=== PATIENT | female | born 1945 | race Caucasian/White ===

== ENCOUNTER 2019-03-18 13:42 | Inpatient (IN) | payer MEDICARE ==
[~2019-03-18] VITALS: Ht 165.1 cm; Wt 58.5 kg
--- NOTE | 2019-03-18 14:44 | NUR ---
ADMISSION NOTE: PATIENT IS A 73 YEAR OLD, FEMALE, BROUGHT IN TO THE HOSPITAL BY AMBULANCE, ADMITTED ON A 5150 HOLD FOR DTO AND GD. PATIENT DIRECT ADMIT FROM [facility] FROM [facility]. PATIENT ADMITTED ON 5150 FOR DTS AND GD DUE TO INCREASING AGGRESSIVE BEHAVIOR TOWARD STAFF AND PEERS. PT HAS DISORGANIZED THOUGHT PROCESSES AND LIMITED INSIGHT INTO HER CONDITION. UPON FACE TO FACE ASSESSMENT PATIENT IS AOX1. SHE IS SLEEPING BUT EASILY AROUSABLE. PATIENT UNABLE TO VERBALIZE WETHER SHE HAS SI OR HI DUE TO MENTAL STATUS. FALL RISK PRECAUTIONS IN PLACE ALONG WITH Q15 CHECKS. PATIENTS RIGHTS HANDBOOK AND GUIDE TO PRESCRIPTIONS PROVIDED. SON NOTIFIED OF ADMISSION. SKIN IS INTACT. DR. KLEIN AND DR. RAMIREZ MADE AWARE OF ADMISSION. WILL CONTINUE TO MONITOR Q15 FOR SAFETY AND BEHAVIOR.
[2019-03-18] MEDS ORDERED: MAG HYDROX/AL HYDROX/SIMETH 30 ML UDC PO PRN (15:00)
[2019-03-18] MEDS ORDERED: ACETAMINOPHEN 325 MG TABLET PO PRN (15:00)
[2019-03-18] MEDS ORDERED: MAGNESIUM HYDROXIDE 30 ML UDC PO PRN (15:00)
[2019-03-18] MEDS ORDERED: BLOOD SUGAR DIAGNOSTIC 1 EACH STRIP IN ONE (15:00)
[2019-03-18] MEDS ORDERED: ESCI10TA PO (15:13)
[2019-03-18] MEDS ORDERED: QUET50TA PO (15:13)
[2019-03-18] MEDS ORDERED: LEVO88TA5 PO (15:13)
[2019-03-18] MEDS ORDERED: EZET10TA32 PO (15:13)
[2019-03-18] MEDS ORDERED: ALPR0.255 PO (15:13)
[2019-03-18] MEDS ORDERED: MEMA10TA56 PO (15:13)
[2019-03-18] MEDS: MEMANTINE HCL 5 MG TABLET PO SCH (17:00)
[2019-03-18 20:00] VITALS: BP 123/65
[2019-03-18 22:12] VITALS: BP 123/65
[2019-03-18 22:32] VITALS: BP 123/65
[2019-03-19 07:10] LABS: ALBUMIN 2.9 g/dL (3.4-5.0); BILIRUBIN,TOTAL 0.7 mg/dL (0.2-1.0); CALCIUM, SERUM 8.8 mg/dL (8.5-10.1); CREATININE 0.8 mg/dL (0.6-1.3); POTASSIUM 3.7 mmol/L (3.5-5.1); TOTAL PROTEIN, SERUM 7.2 g/dL (6.4-8.2)
[2019-03-19] MEDS: LEVOTHYROXINE SODIUM 88 MCG TABLET PO SCH (07:31)
[2019-03-19 08:00] VITALS: BP 123/66
[2019-03-19] MEDS: MEMANTINE HCL 5 MG TABLET PO SCH ×2 (08:26→17:05)
[2019-03-19] MEDS: EZETIMIBE 10 MG TABLET PO SCH (08:26)
--- NOTE | 2019-03-19 13:25 | NUR ---
Family Contact: SW called the pts son, Manolo ([phone]), and he stated that the pt has been confused for a long time and stated that he believes that the pt can return to her facility once she is stable. He stated that his made a psychiatrist appointment for the pt on 03/30/19 and the SW stated that the average length of stay is 7-10 days.
--- NOTE | 2019-03-19 13:28 | NUR ---
Facility Contact: MARIA ELENA called [facility] ([phone]) and spoke to Kim who stated that the pt has to be reevaluated before the pt can be readmitted to their facility. MARIA ELENA stated that she will inform them before the pts discharge date so that a nurse can arrive and evaluate.
--- NOTE | 2019-03-19 14:57 | NUR ---
Initial Discharge Plan: Pt currently resides at [facility] located at [address] [place] [address], [place] [address]; ([phone]). Per pt's son, Manolo ([phone]), he would like the pt to return to the facility. SW spoke to the facility and it was stated that the pt would need to be assessed first. SW will work with the pt and the MD regarding appropriate discharge planning. SW will form a safe and proper discharge.
[2019-03-19] MEDS ORDERED: QUETIAPINE FUMARATE 100 MG TABLET PO SCH (15:30)
[2019-03-19 16:00] VITALS: BP 151/75
[2019-03-19] MEDS: ESCITALOPRAM OXALATE (10 MG) 10 MG TABLET PO SCH (16:10)
[2019-03-19] MEDS ORDERED: QUETIAPINE FUMARATE 100 MG TABLET PO ONE (16:30)
[2019-03-19 20:13] VITALS: BP 100/67
[2019-03-19] MEDS: QUETIAPINE FUMARATE 100 MG TABLET PO SCH (21:08)
[2019-03-20 08:00] VITALS: BP 117/62
[2019-03-20] MEDS: ESCITALOPRAM OXALATE (10 MG) 10 MG TABLET PO SCH (11:04)
[2019-03-20] MEDS: EZETIMIBE 10 MG TABLET PO SCH (11:04)
[2019-03-20] MEDS: LEVOTHYROXINE SODIUM 88 MCG TABLET PO SCH (11:05)
[2019-03-20] MEDS: MEMANTINE HCL 5 MG TABLET PO SCH ×2 (11:08→17:47)
[2019-03-20] MEDS: QUETIAPINE FUMARATE 100 MG TABLET PO SCH ×2 (11:09→17:47)
--- NOTE | 2019-03-20 15:13 | NUR ---
Patient is extermely confused and disorganized, she was able to identify her son but then she said he was someone trying to take her money. She kept walking away from him but when redirected to visit with him , she would go to him but then think he is someone else. She wanders about hallway . she is compliant with morning medication regimen but it takes a while for her to take them. she is not oriented to day, time or where she is, no angry or aggressive behavior, will monitor for safety and changes in behavior.
[2019-03-20 16:00] VITALS: BP 115/81
[2019-03-20] MEDS: clonazePAM 0.5 MG TABLET PO PRN (17:47)
--- NOTE | 2019-03-20 17:48 | NUR ---
Patient became agitated, screaming, kicking, hitting, and trying to bite staff for no apparent reason. Patient was extremely delusional thinking staff was trying to kill her, not able to redirect but was able to administer Klonopin 0.5 mg for agitation, will monitor for safety and increased behavioral changes.
--- NOTE | 2019-03-20 20:00 | NUR ---
RN NOTES: RECEIVED PT. AWAKE ALERT IN DAY ROOM SITTING IN GERICHIAR CONFUSED,ANXIOUS PARANOID,DISORGNIZED NOT SATYING IN BED, GETTING OUT OF THE BED , BANGING UPPER LOWER EXTREMITIES WITH SIDE RAILS AND YADI CHAIR , VISUALLY NOTED SELF INFLICTED SKIN DISCILORATIONS SCABS , BUT PT. REFUSING SKIN ASSESSMENT AND PHOTOS,NOT FOLLOWING ANY REDIRECTIONS . NO S/S OF DISTRESS NOTED , WILL CONTINUITY WITH CARE.
[2019-03-20 20:52] VITALS: BP 115/66
[2019-03-20] MEDS: TEMAZEPAM 7.5 MG CAPSULE PO PRN (21:37)
--- NOTE | 2019-03-21 07:12 | NUR ---
GPS RN NOTE: PT NOTED WITH RIGHT LEFT SCABS ON THE ARM REFUSED FULL BODY ASSESSMENT WILL CONTINUE MONITORING.
[2019-03-21 08:00] VITALS: BP 128/71
[2019-03-21] MEDS: ESCITALOPRAM OXALATE (10 MG) 10 MG TABLET PO SCH (08:07)
[2019-03-21] MEDS: LEVOTHYROXINE SODIUM 88 MCG TABLET PO SCH (08:07)
[2019-03-21] MEDS: QUETIAPINE FUMARATE 100 MG TABLET PO SCH ×2 (08:07→16:22)
[2019-03-21] MEDS: EZETIMIBE 10 MG TABLET PO SCH (08:07)
[2019-03-21] MEDS: MEMANTINE HCL 5 MG TABLET PO SCH ×2 (08:07→16:22)
[2019-03-21 16:00] VITALS: BP 159/70
[2019-03-21 20:01] VITALS: BP 117/77
--- NOTE | 2019-03-21 21:00 | NUR ---
RN NOTES : EARLIER DURING MY ROUNDING, RIGHT FOREARM SKIN TEAR NOTED, AND MULTILPE SKIN DISCOLORATIONS NOTED SKIN ASSESSMENT DONE , PICTURES TAKEN PLACED IN THE CHART,WOUND CARE CONSULT ORDERS , BUT PT. BEHAVIOR VERY AGRESSIVE UNCOOPERTIVE , NOT STAYING IN HER ROOM/ BED , NOT FOLLOWING ANY REDIRECTIONS , WILL CONTINUITY WITH CARE.
[2019-03-21] MEDS: clonazePAM 0.5 MG TABLET PO PRN (21:13)
--- NOTE | 2019-03-21 21:14 | NUR ---
RN NOTES PT.NOTED VERY ANXIOUS PACING, NOT SATYING IN ROOM / BED ,NOT FOLLOWING ANY REDIRECTIONS ATIVAN 0.5 MG PO PRN GIVEN , WILL CONTINUE TO MONITOR. Addendum: 03/24/19 at 1941 by ERICKSON FRY RN CORRECTION TO THE ABOVE NOTES- KLONOPIN 0.5 MG PO PRN GIVEN AND NOT ATIVAN 0.5 MG ,
[2019-03-22] MEDS: LEVOTHYROXINE SODIUM 88 MCG TABLET PO SCH (07:25)
[2019-03-22 08:00] VITALS: BP 127/64
[2019-03-22] MEDS: EZETIMIBE 10 MG TABLET PO SCH (09:03)
[2019-03-22] MEDS: MEMANTINE HCL 5 MG TABLET PO SCH ×2 (09:03→17:40)
[2019-03-22] MEDS: QUETIAPINE FUMARATE 100 MG TABLET PO SCH ×2 (09:03→17:40)
[2019-03-22] MEDS: ESCITALOPRAM OXALATE (10 MG) 10 MG TABLET PO SCH (09:03)
--- NOTE | 2019-03-22 11:33 | NUR ---
WOUND CARE CONSULT: PT PRESENTS AMBULATORY AND CONTINENT WITH RT ARM SKIN TEAR, PRESENT ON ADMISSION. RECOMMENDATIONS MADE FOR WOUND CARE. DISCUSSED WITH NURSING STAFF. WILL SEE PRN. CONN IN AGREEMENT WITH PLAN OF CARE. Addendum: 03/22/19 at 1134 by TULIO RODRIGUEZ WNDNU Amended: Links added.
[2019-03-22 16:00] VITALS: BP 135/72
[2019-03-22 20:35] VITALS: BP 91/66
[2019-03-22 22:30] VITALS: BP 115/70
[2019-03-23] MEDS: LEVOTHYROXINE SODIUM 88 MCG TABLET PO SCH (07:30)
[2019-03-23 08:00] VITALS: BP 131/73
[2019-03-23] MEDS: MEMANTINE HCL 5 MG TABLET PO SCH ×2 (08:39→17:54)
[2019-03-23] MEDS: QUETIAPINE FUMARATE 100 MG TABLET PO SCH ×2 (08:39→17:53)
[2019-03-23] MEDS: EZETIMIBE 10 MG TABLET PO SCH (08:39)
[2019-03-23] MEDS: ESCITALOPRAM OXALATE (10 MG) 10 MG TABLET PO SCH (09:07)
[2019-03-23 16:00] VITALS: BP 115/78
[2019-03-23 20:28] VITALS: BP 124/68
[2019-03-23] MEDS: TEMAZEPAM 7.5 MG CAPSULE PO PRN (21:29)
--- NOTE | 2019-03-23 22:03 | NUR ---
GPS RN NOTES: PT UNABLE TO SLEEP. OFFERED RESTORIL 7.5 MG PO ORDERED. PY AGREED. VITALS ARE WNL. PT TOLERATED MEDICATION WELL. CONTINUE TO MONITOR
[2019-03-23 22:18] VITALS: BP 119/60
[2019-03-24 08:00] VITALS: BP 107/63
[2019-03-24] MEDS: ESCITALOPRAM OXALATE (10 MG) 10 MG TABLET PO SCH (08:05)
[2019-03-24] MEDS: QUETIAPINE FUMARATE 100 MG TABLET PO SCH ×2 (08:05→17:15)
[2019-03-24] MEDS: MEMANTINE HCL 5 MG TABLET PO SCH ×2 (08:05→17:15)
[2019-03-24] MEDS: EZETIMIBE 10 MG TABLET PO SCH (08:05)
[2019-03-24] MEDS: LEVOTHYROXINE SODIUM 88 MCG TABLET PO SCH (08:05)
--- NOTE | 2019-03-24 11:23 | NUR ---
Facility Contact: SW called [facility] ([phone]) and spoke Gavana and informed her that the pt is being discharged soon and so she needs to be reevaluated. She stated that she will call the SW back when they have it scheduled.
--- NOTE | 2019-03-24 12:17 | NUR ---
Facility Contact: Bijan Ellison called from [facility] ([phone]) and stated that she will assess the pt at around 10:30AM the following day.
--- NOTE | 2019-03-24 13:48 | NUR ---
Family Contact: MARIA ELENA called the pts son, Manolo ([phone]), and informed him that the pt will be assessed the following day but there is no discharge date as of right now.
--- NOTE | 2019-03-24 15:20 | NUR ---
Group Note: SW encouraged pt to participate in group on 03/24/19 at 2pm discussing discharge planning. Pt appeared to be confused and disoriented and was unable to participate group therapy. Pt stated that she is unsure of where she is and where she will be going. SW stated that she came from an Assisted Living and that they will be coming to reassess her the following day. She stated that she does not understand what is happening with her care. SW explained that she has a place to reside and that people who work there just need to make sure that she is appropriate for their facility. SW stated that her son is aware and that he is involved in her care and that appeared to calm the pt.
[2019-03-24 16:00] VITALS: BP 115/75
[2019-03-24] MEDS: clonazePAM 0.5 MG TABLET PO PRN (19:35)
--- NOTE | 2019-03-24 19:37 | NUR ---
RN NOTES: PT.NOTED VERY ANXIOUS PACING IN HALLWAY,NOT FOLLOWING ANY REDIRECTIONS KLONOPIN 0.5 MG PO PRN GIVEN , WILL CONTINUE TO MONITOR.
[2019-03-24 20:04] VITALS: BP 111/64
[2019-03-25 08:00] VITALS: BP 136/75
[2019-03-25] MEDS: ESCITALOPRAM OXALATE (10 MG) 10 MG TABLET PO SCH (08:17)
[2019-03-25] MEDS: EZETIMIBE 10 MG TABLET PO SCH (08:17)
[2019-03-25] MEDS: LEVOTHYROXINE SODIUM 88 MCG TABLET PO SCH (08:17)
[2019-03-25] MEDS: QUETIAPINE FUMARATE 100 MG TABLET PO SCH ×2 (08:17→16:20)
[2019-03-25] MEDS: MEMANTINE HCL 5 MG TABLET PO SCH ×2 (08:17→16:20)
--- NOTE | 2019-03-25 14:20 | NUR ---
Facility Contact: Pily Ellison from [facility] ([phone]) came to the facility and assessed the pt for readmittance to their facility. She stated that the pt seems to be calmer and that the facility will take her back.
[2019-03-25 16:00] VITALS: BP 100/60
[2019-03-25 20:00] VITALS: BP 104/55
[2019-03-26] MEDS: LEVOTHYROXINE SODIUM 88 MCG TABLET PO SCH (07:21)
[2019-03-26 08:00] VITALS: BP 121/76
[2019-03-26] MEDS: MEMANTINE HCL 5 MG TABLET PO SCH ×2 (08:13→17:31)
[2019-03-26] MEDS: QUETIAPINE FUMARATE 100 MG TABLET PO SCH (08:13)
[2019-03-26] MEDS: ESCITALOPRAM OXALATE (10 MG) 10 MG TABLET PO SCH (08:13)
[2019-03-26] MEDS: EZETIMIBE 10 MG TABLET PO SCH (08:13)
--- NOTE | 2019-03-26 12:49 | NUR ---
Family Contact: SW called the pts son, Manolo ([phone]), and he expressed his discontent with the pts care and his concern that the pt is being held in the hospital longer than necessary. He stated that there is an appointment that the pt has on Friday and so she needs to be discharged by Friday.
--- NOTE | 2019-03-26 13:11 | NUR ---
Family Contact: SW called the pts daughter in law, Alyson ([phone]), and informed her about the SNF recommendation and she stated that she wanted to know about the pts behaviors. SW informed her about the pts progress and the reason for this recommendation and she stated that she will call her and then call the SW back.
--- NOTE | 2019-03-26 13:32 | NUR ---
Family Contact: Pts son, Manolo ([phone]), stated that he spoke to his and stated that they have agreed to the SNF placement. SW stated that she will call them first thing on Friday regarding the pts discharge.
--- NOTE | 2019-03-26 13:33 | NUR ---
SNF Referral: MARIA ELENA faxed a referral to [facility] with attn to Ana to the fax number: [phone].
[2019-03-26 16:00] VITALS: BP 104/73
[2019-03-26] MEDS: QUETIAPINE FUMARATE 25 MG TABLET PO SCH (17:36)
[2019-03-26 20:05] VITALS: BP 110/67
--- NOTE | 2019-03-27 07:30 | NUR ---
INITIAL PT IN BED CALM AND COOPERATIVE MEDICATION COMPLIANT BREAKFAST AT BEDSIDE. SIDE RIALS UP X 2 FOE SAFETY CALL BROWN NEXT TO PT WILL CONTINUE TO MONITOR
[2019-03-27] MEDS: LEVOTHYROXINE SODIUM 88 MCG TABLET PO SCH (07:58)
[2019-03-27 08:00] VITALS: BP 143/85
[2019-03-27] MEDS: EZETIMIBE 10 MG TABLET PO SCH (09:31)
[2019-03-27] MEDS: MEMANTINE HCL 5 MG TABLET PO SCH ×2 (09:31→17:28)
[2019-03-27] MEDS: ESCITALOPRAM OXALATE (10 MG) 10 MG TABLET PO SCH (09:32)
[2019-03-27] MEDS: QUETIAPINE FUMARATE 25 MG TABLET PO SCH ×2 (09:32→17:28)
[2019-03-27 16:00] VITALS: BP 112/62
--- NOTE | 2019-03-27 17:40 | NUR ---
closing pt compliant with all medications easily directable kept safe all shift no issued this shift. will given rn report to pm shift for continuity of care
[2019-03-27 20:46] VITALS: BP 96/58
[2019-03-28 08:00] VITALS: BP 126/76
[2019-03-28] MEDS: MEMANTINE HCL 5 MG TABLET PO SCH ×2 (08:24→16:30)
[2019-03-28] MEDS: QUETIAPINE FUMARATE 25 MG TABLET PO SCH ×2 (08:24→16:30)
[2019-03-28] MEDS: EZETIMIBE 10 MG TABLET PO SCH (08:24)
[2019-03-28] MEDS: LEVOTHYROXINE SODIUM 88 MCG TABLET PO SCH (08:24)
[2019-03-28] MEDS: ESCITALOPRAM OXALATE (10 MG) 10 MG TABLET PO SCH (08:24)
[2019-03-28 16:00] VITALS: BP 109/70
[2019-03-28 20:46] VITALS: BP 115/70
[2019-03-29 08:00] VITALS: BP 115/53
[2019-03-29] MEDS: QUETIAPINE FUMARATE 25 MG TABLET PO SCH ×2 (08:49→17:42)
[2019-03-29] MEDS: MEMANTINE HCL 5 MG TABLET PO SCH ×2 (08:49→17:42)
[2019-03-29] MEDS: ESCITALOPRAM OXALATE (10 MG) 10 MG TABLET PO SCH (08:49)
[2019-03-29] MEDS: LEVOTHYROXINE SODIUM 88 MCG TABLET PO SCH (08:49)
[2019-03-29] MEDS: EZETIMIBE 10 MG TABLET PO SCH (08:49)
--- NOTE | 2019-03-29 09:29 | NUR ---
Family Contact: SW called the pts son, Manolo ([phone]), with the pts nurse Yady present, and informed him that the pt is not being discharged today because she has regressed in the sense that she is not taking her medications and appears to be paranoid. SW stated that she is aware the pt will be missing her psychiatrist appointment that was scheduled for the following day and stated that the SW can attempt to reschedule it. Pts son stated that his has better connections with that office and therefore she will call and reschedule the appointments. Pts son expressed concern that they were going out of town soon and therefore they will not be able to assist with transportation when the pt gets accepted to a facility and the SW stated that she will arrange the pts transportation and then will call them and keep them updated. Pts son and daughter in law stated that they understand the need for the discharge to be postponed.
--- NOTE | 2019-03-29 09:43 | NUR ---
SNF Contact: SW received a voicemail from Ana ([phone]) from [facility] and when the SW called back she was informed that she was not at work yet but the inquiry was not passed on to her Admissions. MARIA ELENA will call back at a later time.
--- NOTE | 2019-03-29 10:45 | NUR ---
SNF Referral: MARIA ELENA faxed a referral to [facility] with attn to Alexandro to the fax number: [phone].
--- NOTE | 2019-03-29 11:38 | NUR ---
SNF Contact: SW called Ana ([phone]) from [facility] and she stated that the pt was accepted to their facility.
--- NOTE | 2019-03-29 15:19 | NUR ---
PATIENT WAS PORTRAYING PARANOID BEHAVIOR THIS MORNING. ALTHOUGH SHE HAS BEEN MED COMPLIANT PER REPORT, SHE WAS VERY SUSPICIOUS OVER THE MEDICATIONS AND DID NOT WANT TO TAKE THEM. ANOTHER NURSE HAD TO ATTEMPT TO ADMINISTER THE MEDICATIONS DUE TO HER BEHAVIOR. CONTACTED DR KLEIN AND INFORMED HIM OF MY BEHAVIORAL FINDINGS. DISCHARGE WAS CANCELLED UNTIL FURTHER NOTICE.
[2019-03-29 16:00] VITALS: BP 119/76
[2019-03-29 20:39] VITALS: BP 121/67
[2019-03-29] MEDS: RIVASTIGMINE TARTRATE 1.5 MG CAPSULE PO SCH (21:38)
[2019-03-29] MEDS: risperiDONE 1 MG TABLET PO SCH (21:38)
[2019-03-30] MEDS: LEVOTHYROXINE SODIUM 88 MCG TABLET PO SCH (07:29)
[2019-03-30 08:00] VITALS: BP 132/83
[2019-03-30] MEDS: risperiDONE 1 MG TABLET PO SCH ×2 (08:49→21:28)
[2019-03-30] MEDS: ESCITALOPRAM OXALATE (10 MG) 10 MG TABLET PO SCH (08:49)
[2019-03-30] MEDS: EZETIMIBE 10 MG TABLET PO SCH (08:49)
[2019-03-30] MEDS: RIVASTIGMINE TARTRATE 1.5 MG CAPSULE PO SCH ×2 (08:50→21:27)
[2019-03-30] MEDS: MEMANTINE HCL 5 MG TABLET PO SCH ×2 (08:50→17:40)
[2019-03-30 16:00] VITALS: BP 124/64
[2019-03-30] MEDS ORDERED: risperiDONE 1 MG TABLET PO SCH (17:00)
[2019-03-30 20:09] VITALS: BP 124/75
[2019-03-30] MEDS: TEMAZEPAM 7.5 MG CAPSULE PO PRN (22:25)
[2019-03-31 08:00] VITALS: BP 138/71
[2019-03-31] MEDS: risperiDONE 1 MG TABLET PO SCH ×2 (08:31→21:27)
[2019-03-31] MEDS: LEVOTHYROXINE SODIUM 88 MCG TABLET PO SCH (08:31)
[2019-03-31] MEDS: RIVASTIGMINE TARTRATE 1.5 MG CAPSULE PO SCH ×2 (08:31→21:30)
[2019-03-31] MEDS: ESCITALOPRAM OXALATE (10 MG) 10 MG TABLET PO SCH (08:31)
[2019-03-31] MEDS: EZETIMIBE 10 MG TABLET PO SCH (08:32)
[2019-03-31] MEDS: MEMANTINE HCL 5 MG TABLET PO SCH ×2 (08:32→16:22)
[2019-03-31 16:00] VITALS: BP 133/76
--- NOTE | 2019-03-31 20:02 | NUR ---
director enterprise sales notes pt. seen in bed lying not in any distress noted, tylenol given because pt complaining of headache. no n/v noted.
[2019-03-31 20:05] VITALS: BP 129/67
[2019-03-31] MEDS: TEMAZEPAM 7.5 MG CAPSULE PO PRN (21:27)
--- NOTE | 2019-03-31 21:30 | NUR ---
BLEACH MIXER NOTES ROUTINE MEDS GIVEN WELL HER PRN MED SLEEP MEDICATION ORDERED. SNACKS ALSO SERVED. WILL CONTINUE MONITORING.
--- NOTE | 2019-04-01 | NUR ---
FIBREGLASS LAY UP WORKER NOTES PT SLEEPING COMFORTABLY IN BED WITHOUT ANY DISTRESS NOTED. BED ALARM SET FOR PT SAFETY. WILL CONTINUE MONITORING.
--- NOTE | 2019-04-01 03:00 | NUR ---
SERVICE STATION OPERATOR NOTES PT SLEEPING COMFORTABLY IN BED WITHOUT ANY DISTRESS NOTED. KEPT HER WARM AND COMFORTABLE AT ALL TIMES. BED ALARM SET FOR SAFETY.
--- NOTE | 2019-04-01 06:17 | NUR ---
MUSHROOM SPAWN MAKER CLOSING NOTES PT REMAIN RESTING COMFORTABLY IN BED WITHOUT ANY ACUTE DISTRESS NOTED. SLEPT WELL AFTER SLEEP MEDICATION GIVEN LAST NIGHT. STABLE KERA THE NIGHT. SHE MEDS COMPLIANT TOOK ONE BY ONE . STILL DISORGANIZED ,FORGETFUL AND UNPREDICTABLE . KEPT HER WARM AND COMFORTABLE AT ALL TIMES. WILL ENDORSE TO AM NURSE FOR CONTINUITY OF CARE.
[2019-04-01 08:00] VITALS: BP 127/83
[2019-04-01] MEDS: ESCITALOPRAM OXALATE (10 MG) 10 MG TABLET PO SCH (08:29)
[2019-04-01] MEDS: EZETIMIBE 10 MG TABLET PO SCH (08:29)
[2019-04-01] MEDS: risperiDONE 1 MG TABLET PO SCH ×2 (08:29→21:02)
[2019-04-01] MEDS: RIVASTIGMINE TARTRATE 1.5 MG CAPSULE PO SCH ×2 (08:29→21:02)
[2019-04-01] MEDS: MEMANTINE HCL 5 MG TABLET PO SCH ×2 (08:29→16:14)
[2019-04-01] MEDS: LEVOTHYROXINE SODIUM 88 MCG TABLET PO SCH (08:29)
--- NOTE | 2019-04-01 10:48 | NUR ---
Family Contact: SW called the pts son, Manolo ([phone]), and left a voicemail stating that the pt is going to be discharged on Friday to either [facility] or [facility]. MARIA ELENA stated that it will be the family's choice and to call the SW back with that information.
[2019-04-01 16:00] VITALS: BP 140/72
--- NOTE | 2019-04-01 20:10 | NUR ---
RN OPENING NOTES RECEIVED ENDORSEMENT FROM KAELYN TOLEDO. FOUND Pt RESTING IN BED. NO S/S OF ACUTE DISTRESS OR SOB NOTED. Pt IS MED COMPLIANT. SAFETY MEASURES IN PLACE. BED LOW, LOCKED, HOB ELEVATED, SIDE RAILS UP, BED ALARM ON. WILL CONTINUE TO MONITOR Pt's CONDITION AND SAFETY THROUGHOUT THE NIGHT.
[2019-04-01 20:19] VITALS: BP 124/81
[2019-04-01 20:30] VITALS: BP 124/81
[2019-04-01] MEDS: TEMAZEPAM 7.5 MG CAPSULE PO PRN (23:51)
--- NOTE | 2019-04-02 06:44 | NUR ---
RN CLOSING NOTES: NO SIGNIFICANT CHANGES IN Pt's CONDITION. Pt REMAINED STABLE PER BASELINE. NO S/S OF ACUTE DISTRESS OR SOB NOTED DURING THE NIGHT. ALL NEEDS MET AND ATTENDED TO. SAFETY MEASURES IN PLACE. BED, LOW, LOCKED, HOB ELEVATED, SIDE RAILS UP, & BED ALARM ON. Pt IS RESTING IN BED WITH UNLABORED RESPIRATIONS WITH EQUAL CHEST RISE AND FALL. WILL ENDORSE TO DAYSHIFT RN FOR Pt's CORNELIUS.
[2019-04-02] MEDS: LEVOTHYROXINE SODIUM 88 MCG TABLET PO SCH (07:37)
[2019-04-02 08:00] VITALS: BP 143/85
[2019-04-02] MEDS: ESCITALOPRAM OXALATE (10 MG) 10 MG TABLET PO SCH (08:52)
[2019-04-02] MEDS: RIVASTIGMINE TARTRATE 1.5 MG CAPSULE PO SCH ×2 (08:52→20:20)
[2019-04-02] MEDS: risperiDONE 1 MG TABLET PO SCH ×2 (08:52→20:20)
[2019-04-02] MEDS: MEMANTINE HCL 5 MG TABLET PO SCH ×2 (08:52→17:06)
[2019-04-02] MEDS: EZETIMIBE 10 MG TABLET PO SCH (09:01)
[2019-04-02 16:00] VITALS: BP 123/83
[2019-04-02 20:00] VITALS: BP_SYST 131; BP_SYST 143; BP_DIAS 65; BP_DIAS 85
[2019-04-03 08:00] VITALS: BP 141/83
[2019-04-03] MEDS: MEMANTINE HCL 5 MG TABLET PO SCH ×2 (08:00→16:56)
[2019-04-03] MEDS: ESCITALOPRAM OXALATE (10 MG) 10 MG TABLET PO SCH (08:00)
[2019-04-03] MEDS: EZETIMIBE 10 MG TABLET PO SCH (08:00)
[2019-04-03] MEDS: LEVOTHYROXINE SODIUM 88 MCG TABLET PO SCH (08:01)
[2019-04-03] MEDS: risperiDONE 1 MG TABLET PO SCH ×2 (08:01→21:35)
[2019-04-03] MEDS: RIVASTIGMINE TARTRATE 1.5 MG CAPSULE PO SCH ×2 (08:01→21:35)
--- NOTE | 2019-04-03 10:06 | NUR ---
PT EXPERIENCED [address] WAITE NOTIFIED
[2019-04-03] MEDS ORDERED: ONDANSETRON 4 MG TAB.RAPDIS PO PRN (13:30)
[2019-04-03 16:00] VITALS: BP 137/93
[2019-04-03 20:00] VITALS: BP 140/71
[2019-04-03] MEDS: TEMAZEPAM 7.5 MG CAPSULE PO PRN (22:49)
[2019-04-04] MEDS: LEVOTHYROXINE SODIUM 88 MCG TABLET PO SCH (07:30)
[2019-04-04] MEDS: EZETIMIBE 10 MG TABLET PO SCH (08:06)
[2019-04-04] MEDS: risperiDONE 1 MG TABLET PO SCH ×2 (08:14→21:50)
[2019-04-04] MEDS: MEMANTINE HCL 5 MG TABLET PO SCH ×2 (08:14→16:52)
[2019-04-04] MEDS: RIVASTIGMINE TARTRATE 1.5 MG CAPSULE PO SCH ×2 (08:14→21:50)
[2019-04-04] MEDS: ESCITALOPRAM OXALATE (10 MG) 10 MG TABLET PO SCH (08:14)
[2019-04-04 09:09] VITALS: BP 130/74
--- NOTE | 2019-04-04 10:01 | NUR ---
GPS/RN pt refused am meds offered x3. DR PEREZ AWARE
[2019-04-04 16:00] VITALS: BP 125/71
[2019-04-04 20:42] VITALS: BP 141/78
[2019-04-04] MEDS: TEMAZEPAM 7.5 MG CAPSULE PO PRN (22:15)
--- NOTE | 2019-04-05 06:35 | NUR ---
RN NOTES PT IN GOOD CONDITION, SLEEPING COMFORTABLY IN BED. NO S/S OF DISTRESS, RESPIRATION EVEN AND UNLABORED. SAFETY PRECAUTION CONTINUED, BED IN LOW POSITION, LOCKED AND SIDE RAILS UP X3. WILL CONTINUE TO MONITOR AND ENDORSE TO AM SHIFT
[2019-04-05 08:00] VITALS: BP 111/77
[2019-04-05] MEDS: MEMANTINE HCL 5 MG TABLET PO SCH ×2 (08:21→16:17)
[2019-04-05] MEDS: EZETIMIBE 10 MG TABLET PO SCH (08:21)
[2019-04-05] MEDS: LEVOTHYROXINE SODIUM 88 MCG TABLET PO SCH (08:21)
[2019-04-05] MEDS: ESCITALOPRAM OXALATE (10 MG) 10 MG TABLET PO SCH (08:21)
[2019-04-05] MEDS: RIVASTIGMINE TARTRATE 1.5 MG CAPSULE PO SCH ×2 (08:21→20:44)
[2019-04-05] MEDS: risperiDONE 1 MG TABLET PO SCH ×2 (08:21→20:44)
--- NOTE | 2019-04-05 14:15 | NUR ---
Family Contact: MARIA ELENA called the pts son, Manolo ([phone]), and informed him that the pt will be discharged to [facility] the following day. Pts son stated that he accepts this placement.
[2019-04-05 16:00] VITALS: BP 127/76
[2019-04-05 20:15] VITALS: BP 115/76
[2019-04-06 08:00] VITALS: BP 113/74
[2019-04-06] MEDS: LEVOTHYROXINE SODIUM 88 MCG TABLET PO SCH (08:22)
[2019-04-06] MEDS: MEMANTINE HCL 5 MG TABLET PO SCH (08:37)
[2019-04-06] MEDS: RIVASTIGMINE TARTRATE 1.5 MG CAPSULE PO SCH (08:37)
[2019-04-06] MEDS: ESCITALOPRAM OXALATE (10 MG) 10 MG TABLET PO SCH (08:38)
[2019-04-06] MEDS: risperiDONE 1 MG TABLET PO SCH (08:38)
[2019-04-06] MEDS: EZETIMIBE 10 MG TABLET PO SCH (08:38)
--- NOTE | 2019-04-06 10:58 | NUR ---
RICHA NOTE: REPORT CALLED TO LYDIA CHAUDHRY AT [facility] [phone]
--- NOTE | 2019-04-06 12:30 | NUR ---
RN NOTE: 74 YEAR OLD FEMALE DISCHARGED TO [facility] IN STABLE CONDITION. COMPLIANT WITH MEDICATIONS, COOPERATIVE WITH TREATMENT PLANS. PATIENT DENIES SI/HI AND INSTRUCTED TO GO TO THE CLOSEST ER IF DEVELOPING SI/HI. BEHAVIOR IMPROVED, PSYCHIATRIC TREATMENT PLANS MET, MEDICAL TREATMENT PLANS DEFERRED FOR CONTINUAL MONITORING. EDUCATED PT ABOUT AFTER CARE PLAN AND COPY PROVIDED. RETURNED PERSONAL BELONGINGS TO PATIENT. MEDICATIONS RECONCILED WITH DR. MARTINEZ AND CHUCHO CARVER. REPORT GIVEN TO LYDIA CHAUDHRY AT [facility]. PT UNABLE TO SIGN DISCHARGE PAPERWORK DUE TO MENTAL STATUS. WOUND PICTURES TAKEN AND DOCUMENTED IN CHART. PT LEFT THE UNIT AT 12:30 VIA GURNEY AND AMBULANCE WITH EMS.
--- NOTE | 2019-04-06 13:53 | NUR ---
Discharge Note: Pt was discharged to [facility] (SNF) located at [address] [address]; ([phone]) to Rm 16A. Pt was discharged via [facility] at 12pm. Pts son, Manolo ([phone]), was notified of the placement. Upon discharge, the pt appeared to be in a dysphoric mood and presented with an agitated affect. Pt denied both suicidal and homicidal ideation as well as auditory and visual hallucinations. Pt appeared to be confused about her current situation and was oriented x2 (place and self). Pt will be under the care of psychiatrist, Dr. Garcia, located at [address], [place] [address]; and hospital ward clerk, Dr. Haji, located at [address] [place] [address]; .
== END 2019-04-06 12:45 | DRG 885 ==
LOC: GPS 13:42
PROVIDERS: ADMIT Psychiatry & Neurology Psychiatry; ATTEND Hospitalist
DX: F33.3 Major depressive disorder, recurrent, severe with psychotic symptoms (principal); E44.0 Moderate protein-calorie malnutrition; F29 Unspecified psychosis not due to a substance or known physiological condition; G30.9 Alzheimer's disease, unspecified; F02.80 Dementia in other diseases classified elsewhere, unspecified severity, without behavioral disturbance, psychotic disturbance, mood disturbance, and anxiety; E87.6 Hypokalemia; E03.9 Hypothyroidism, unspecified; Z91.14 Patient's other noncompliance with medication regimen; E88.09 Other disorders of plasma-protein metabolism, not elsewhere classified; Z68.21 Body mass index [BMI] 21.0-21.9, adult
CPT/HCPCS: 36415; 80053-TC; 80061-TC; 82962-TC; 87081-TC